=== PATIENT | female | born 1970 | race Native Hawaiian/Other Pacific Islander ===

== ENCOUNTER 2018-07-08 15:34 | Emergency (ER) | payer OTHER ==
[2018-07-08 15:34] VITALS: BMI 29.0
[2018-07-08 16:01] VITALS: RESP 18; TEMP 98.1
--- NOTE | 2018-07-08 16:03 | ED PDOC ---
Arrival/HPI - General Chief Complaint: Upper Extremity Problem/Injury Historian: Patient, Spouse - History of Present Illness Time/Duration: Other (this morning) Symptom Onset: Sudden Symptom Course: Unchanged Quality: Aching Severity Level: Severe Activities at Onset: Sleeping Associated Symptoms (Text): 07/08/18 16:01 Patient woke up this morning after sleeping awkwardly with severe right trapezius pain and spasm. Radiates towards her shoulder. No numbness tingling or paresthesias. No weakness. She has never experienced this previously. No chest pain palpitations or dyspnea. No injury or trauma. Past Medical History - Infectious Disease Hx of Infectious Diseases: None - Tetanus Immunization Tetanus Immunization: Unknown - Past Medical History Past Medical History: No Previous - Cardiac Hx Cardiac Disorders: No - Pulmonary Hx Respiratory Disorders: No - Neurological Hx Neurological Disorder: No - HEENT Hx HEENT Disorder: No - Renal Hx Renal Disorder: No - Endocrine/Metabolic Hx Endocrine Disorders: No - Hematological/Oncological Hx Blood Disorders: Yes Hx Blood Transfusions: Yes (2010, 05/2016) - Integumentary Hx Dermatological Disorder: No - Musculoskeletal/Rheumatological Hx Musculoskeletal Disorders: No - Gastrointestinal Hx Gastrointestinal Disorders: No - Genitourinary/Gynecological Hx Genitourinary Disorders: No - Psychiatric Hx Depression: No Hx Substance Use: No - Past Surgical History Past Surgical History: No Previous - Anesthesia Hx Anesthesia: No Hx Anesthesia Reactions: No Hx Malignant Hyperthermia: No - Suicidal Assessment Feels Threatened In Home Enviroment: No Family/Social History - Physician Review Nursing Documentation Reviewed: Yes Family/Social History: Unknown Family HX Smoking Status: Never Smoked Hx Alcohol Use: No Hx Substance Use: No Hx Substance Use Treatment: No Allergies/Home Meds Allergies/Adverse Reactions: Allergies No Known Allergies Allergy (Verified 06/20/16 13:35) Home Medications: Home Meds Medication Instructions Recorded Confirmed Ferrous Sulfate [Iron] 325 mg PO BID 06/02/16 06/20/16 Review of Systems - Physician Review All systems were reviewed & negative as marked: Yes - Review of Systems Constitutional: Normal Respiratory: Normal Cardiovascular: Normal Gastrointestinal: Normal Musculoskeletal: Neck Pain. absent: Back Pain Neurological: Normal Physical Exam Vital Signs Temp Pulse Resp BP Pulse Ox 07/08/18 15:35 98.1 F 85 18 129/80 98 Temperature: Afebrile Blood Pressure: Normal Pulse: Regular Respiratory Rate: Normal Appearance: Positive for: Well-Appearing, Non-Toxic, Uncomfortable Pain Distress: Moderate Mental Status: Positive for: Alert and Oriented X 3 - Systems Exam Head: Present: Atraumatic, Normocephalic Neck: Present: Normal Range of Motion, Paraspinal Tenderness, Other (Right trapezius paraspinous tenderness and spasm.). No: MIDLINE TENDERNESS, Lymph adenopathy Respiratory/Chest: Present: Clear to Auscultation, Good Air Exchange. No: Respiratory Distress, Accessory Muscle Use Cardiovascular: Present: Regular Rate and Rhythm, Normal S1, S2. No: Murmurs Back: Present: Normal Inspection. No: Midline Tenderness, Paraspinal Tenderness Upper Extremity: Present: Normal Inspection. No: Cyanosis, Edema Neurological: Present: GCS=15, CN II-XII Intact, Speech Normal, Motor Func Grossly Intact, Normal Sensory Function Skin: Present: Warm, Dry, Normal Color. No: Rashes Medical Decision Making ED Course and Treatment: 07/08/18 17:03 Pain has improved. Discharged home accompanied by her to follow-up with PMD. Follow-up in ER as needed. A note for work was given. 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 - RAD Interpretation Radiology Orders: 07/08/18 15:59 CERVICAL SPINE >18YR W/OBLIQUE [RAD] Stat Cervical spine shows a C5 spinous process chip fracture which appears to be old. 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 Ulcer: No History Surgical Site Infection Following: None - Disposition Have Diagnosis and Disposition been Completed?: Yes Diagnosis: Cervical strain Disposition: HOME/ ROUTINE Disposition Time: 17:04 Patient Plan: Discharge Condition: IMPROVED Discharge Instructions (ExitCare): Neck Sprain (DC), Cervical Muscle Strain Additional Instructions: Rest and moist heat. Follow-up with PMD. Follow-up in ER as needed. Prescriptions: Cyclobenzaprine [Flexeril] 5 mg PO Q8 #15 tab Naproxen [Naprosyn] 500 mg PO BID #14 tab Tramadol HCl [Ultram] 50 mg PO Q6 PRN #15 tab PRN Reason: Pain Forms: [facility] (Turkish), WORK NOTE
[2018-07-08 17:02] VITALS: BP 114/72; PULSE 73; O2SAT 99
--- NOTE | 2018-07-09 10:57 | RAD ---
Date of service: 07/08/2018 PROCEDURE: Cervical Spine Radiographs. HISTORY: Pain. COMPARISON: None available. FINDINGS: BONES: On the AP film the head is tilted to the left. This could be due to muscular spasm or positioning DISC SPACES: Normal. SOFT TISSUES: Normal. No prevertebral soft tissue swelling. OTHER FINDINGS: None. IMPRESSION: No acute findings. On the AP film the head is tilted to the left. This could be due to muscular spasm or positioning
== END 2018-07-08 17:22 | disposition home or self-care (01) ==
LOC: ED 15:34
DX: S16.1XXA Strain of muscle, fascia and tendon at neck level, initial encounter (principal); X50.0XXA Overexertion from strenuous movement or load, initial encounter
CPT/HCPCS: 72050; 81025; 96372; 99284; J1885